=== PATIENT | male | born 1980 | race African-American/Black ===

== ENCOUNTER 2019-12-10 13:28 | Emergency (ER) | payer MEDICARE, MEDICAID ==
[2019-12-10 14:29] LABS: ABSOLUTE EOSINOPHILS # (AUTO) 0.1 10^3/uL (0.0-0.6); ABSOLUTE LYMPHOCYTES (AUTO) 1.5 10^3/uL (0.5-4.7); ABSOLUTE MONOCYTES (AUTO) 0.4 10^3/uL (0.1-1.4); BASOPHILS % (AUTO) 0.4 % (0-2); EOSINOPHILS % (AUTO) 2.3 % (0-6); HEMATOCRIT 43.7 % (37.9-51.0); HEMOGLOBIN 14.1 g/dL (13.5-17.0); LYMPHOCYTES % (AUTO) 29.4 % (13-45); MEAN CORPUSCULAR HEMOGLOBIN 28.2 pg (27.0-33.4); MEAN CORPUSCULAR HGB CONC 32.2 g/dL (32.0-36.0); MEAN CORPUSCULAR VOLUME 88 fl (80-97); MONOCYTES % (AUTO) 7.6 % (3-13); PLATELET COUNT 236 10^3/uL (150-450); RED BLOOD COUNT 4.98 10^6/uL (4.35-5.55); RED CELL DISTRIBUTION WIDTH 12.9 % (11.5-14.0); SEGMENTED NEUTROPHILS % (AUTO) 60.3 % (42-78); TOTAL CELLS COUNTED % (AUTO) 100 %
[2019-12-10 14:31] LABS: APPEARANCE,URINE CLEAR; BILIRUBIN,URINE NEGATIVE (NEGATIVE); COLOR,URINE YELLOW; GLUCOSE, URINE NEGATIVE (NEGATIVE); KETONES,URINE NEGATIVE (NEGATIVE); LEUKOCYTE ESTERASE,URINE NEGATIVE (NEGATIVE); NITRITE,URINE NEGATIVE (NEGATIVE); PROTEIN,URINE NEGATIVE (NEGATIVE); URINE SPECIFIC GRAVITY 1.008; UROBILINOGEN,URINE NEGATIVE mg/dL (<2.0)
[2019-12-10 14:48] LABS: URINE AMPHETAMINES SCREEN NEGATIVE; URINE BARBITURATES SCREEN NEGATIVE; URINE BENZODIAZEPINES SCREEN NEGATIVE; URINE COCAINE SCREEN NEGATIVE; URINE MARIJUANA (THC) SCREEN NEGATIVE; URINE METHADONE SCREEN NEGATIVE; URINE PHENCYCLIDINE SCREEN NEGATIVE
[2019-12-10 14:54] LABS: ALBUMIN 4.8 g/dL (3.5-5.0); ALKALINE PHOSPHATASE 102 U/L (38-126); ANION GAP 9 (5-19); ASPARTATE AMINO TRANSFERASE 27 U/L (17-59); BILIRUBIN,TOTAL 0.7 mg/dL (0.2-1.3); BLOOD UREA NITROGEN 5 mg/dL (7-20); CALCIUM 9.4 mg/dL (8.4-10.2); CARBON DIOXIDE 26 mmol/L (22-30); CHLORIDE 103 mmol/L (98-107); GLUCOSE 100 mg/dL (75-110); TOTAL PROTEIN 8.2 g/dL (6.3-8.2)
[2019-12-10 14:56] LABS: ACETAMINOPHEN < 10 ug/mL (10-30); ALCOHOL < 10 mg/dL (NONE DETECTED); SALICYLATE < 1.0 mg/dL (2.0-20.0)
--- NOTE | 2019-12-10 15:44 | RADIOLOGY REPORT (SQ) ---
EXAM DESCRIPTION: CHEST SINGLE VIEW IMAGES COMPLETED DATE/TIME: 12/10/2019 2:26 pm REASON FOR STUDY: altered mental status COMPARISON: None. EXAM PARAMETERS: NUMBER OF VIEWS: One view. TECHNIQUE: Single frontal radiographic view of the chest acquired. RADIATION DOSE: NA LIMITATIONS: None. FINDINGS: LUNGS AND PLEURA: No opacities, masses or pneumothorax. No pleural effusion. MEDIASTINUM AND HILAR STRUCTURES: No masses. Contour normal. HEART AND VASCULAR STRUCTURES: Heart normal in size. Normal vasculature. BONES: No acute findings. HARDWARE: None in the chest. OTHER: No other significant finding. IMPRESSION: NO ACUTE RADIOGRAPHIC FINDING IN THE CHEST. TECHNICAL DOCUMENTATION: JOB ID: [id number] 2010 [email or web address]- All Rights Reserved Reading location - IP/workstation name: [id number]
--- NOTE | 2019-12-10 18:28 | PSYCHOLOGICAL NOTE ---
Psych Note - Psych Note Date seen by psych provider: 12/10/19 Time seen by psych provider: 16:09 Psych Note: Reason for consult: IVC Patient arrived to [facility] via [facility] under IVC by [facility]. Patient was placed under involuntary commitment by Spike Whitfield for concerns of increased psychosis, hallucinations and disorganized thoughts. There was complaints from the patient's apartment complex that the patient was looking into people's cars and messing with electrical boxes. Patient is observed sitting straight up in chair facing away from the TV. Patient reports he does not know why he is currently at [facility] but remembers that the machine puller and laster brought him. Patient denies remembering going to [facility] or why he would go. When asked why patient was looking in electrical boxes he stated he was looking for land lines. He denies remembering trying to get into people's cars. Clinician spoke with patient's and. She reports that the patient has a history of mental health and does not take any medications. She reports that to her knowledge she has not been inpatient psychiatric treatment. She disclosed that the patient's mother was a drug addict so his grandmother raised him. In 2006 his grandmother and his brother and since then he struggled. 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 Now the patient struggles maintaining employment and "gets lost in his mind." She reports that at [facility] they asked why he was messing with the electrical boxes and he reported that he works for [employer] and was looking for landline's. She continue to report that when they asked about the cars he started "just talking out of his head saying he was pleased and the cars were all stolen and they did not have a license plates." Patient is alert and orientated to person and place. Mood is euthymic with flat affect. Patient denies suicidal and homicidal ideations. Patient demonstrates behaviors of responding to internal stimuli. Patient has difficulty maintaining eye contact with eyes darting around the room. He demonstrates difficulty with organized and linear conversation, does not finish thoughts and appears confused. Attention and concentration are fair. Insight, judgment, impulse control is poor. Clinical presentation Confused Probable hallucinations and/or delusions Disorganized thought processes Medication recommendations per [facility]'s contracted psychiatrist Dr. Keshav MENG are as follows Haldol 5 mg twice daily Cogentin 1 mg daily Impression\\plan: Patient is recommended continue under IVC. Patient has been placed on full IVC status prior to H arrival by MARC Rose. Patient presents c onfused with probable hallucinations and/or delusions. Patient has been extreme difficulty in engaging in organized linear conversation. Patient is staring at his lap with times of looking around the room as if searching for something. Patient has been engaging in behaviors that put himself and others and harm such as messing with electrical boxes and attempting to obtain entry into peoples veh icles. Medication recommendations have been provided. Dr. Emmanuel was consulted in the care management of this patient; tending physicians in agreement with recommendations and disposition.
--- NOTE | 2019-12-10 19:15 | EKG REPORT ---
SEVERITY:- NORMAL ECG - SINUS RHYTHM : Confirmed by: Tahira Begum MD 10-Dec-2019 19:14:21
[2019-12-10] MEDS ORDERED: BENZTROPINE MESYLATE 1 MG TABLET PO ONE (21:19)
--- NOTE | 2019-12-10 21:45 | ER Document Report ---
Entered by MUSA BROWN SCRIBE 12/10/19 1500 Acting as scribe for:ALEXANDRE WHITE MD ED General - General Chief Complaint: Psych Problem Stated Complaint: IVC W/PAPERS Information source: Patient Notes: This 39-year-old male with PTSD, minor TBI and autism and presents to the emergency department on IVC papers for looking into cars and messing with electric boxes. Patient says "I'm alright" when asked why he is at the emergency department. Patient reports that he is hearing voices and that he talks with them. Patient said that "somebody called about the landline" and he was "checking the landline outside". Patient states that he is not taking any medications and does not have any medical conditions. Patient denies headache, shortness of breath, fever, chills, suicide ideation, homicide ideation, rash, poor appetite, nausea, vomiting and diaphoresis. Past Medical History - General Information source: Patient - Social History Smoking Status: Never Smoker Cigarette use (# per day): No Chew tobacco use (# tins/day): No Frequency of alcohol use: None Drug Abuse: None Lives with: Alone Family History: Reviewed & Not Pertinent Psychiatric Medical History: Reports: Hx Post Traumatic Stress Disorder Surgical Hx: Negative - Immunizations Hx Diphtheria, Pertussis, Tetanus Vaccination: Yes Review of Systems - Review of Systems Constitutional: See HPI. denies: Chills, Diaphoresis, Fever EENT: No symptoms reported Cardiovascular: No symptoms reported Respiratory: See HPI. denies: Short of breath Gastrointestinal: See HPI. denies: Nausea, Vomiting, Poor appetite Genitourinary: No symptoms reported Male Genitourinary: No symptoms reported Musculoskeletal: No symptoms reported Skin: See HPI. denies: Rash Hematologic/Lymphatic: No symptoms reported Neurological/Psychological: See HPI, Hallucinations. denies: Homicidal ideation , Headaches, Suicidal ideation -: Yes All other systems reviewed and negative Physical Exam - Vital signs Vitals: Temp Pulse Resp BP Pulse Ox 98.7 F 74 18 147/100 H 99 12/10/19 13:42 12/10/19 13:42 12/10/19 13:42 12/10/19 13:42 12/10/19 13:42 - Notes Notes: Physical Exam: General: Alert, appears well. HEENT: Normocephalic. Atraumatic. PERRL. Extraocular movements intact. Oropharynx clear. Neck: Supple. Non-tender. Respiratory: No respiratory distress. Clear and equal breath sounds bilaterally. Cardiovascular: Regular rate and rhythm. Abdominal: Normal Inspection. Non-tender. No distension. Normal Bowel Sounds. Back: No gross abnormalities. Extremities: Moves all four extremities. Upper extremities: Normal inspection. Normal ROM. Lower extremities: Normal inspection. No edema. Normal ROM. Neurological: Normal cognition. AAOx4. Normal speech. Psychological: Flat affect. Skin: Warm. Dry. Normal color. Course - Re-evaluation Re-evalutation: 12/10/19 21:20 Patient has remained calm 12/10/19 21:22 Patient is on involuntary commitment due to acute psychotic behavior and and disorganized thought process. Patient is medically cleared at this time and stable to be transferred to another inpatient or outpatient mental health facility. - Vital Signs Vital signs: Temp Pulse Resp BP Pulse Ox 97.7 F 70 20 127/83 H 96 12/10/19 17:20 12/10/19 15:08 12/10/19 15:08 12/10/19 15:08 12/10/19 15:08 12/10/19 21:20 Vital signs are stable no acute process. - Laboratory Result Diagrams: 12/10/19 13:56 12/10/19 13:56 Laboratory results interpreted by me: 12/10/19 13:56 BUN 5 L Salicylates < 1.0 L Acetaminophen < 10 L - Diagnostic Test Radiology reviewed: Image reviewed, Reports reviewed Radiology results interpreted by me: 12/10/19 21:21 Chest x-ray shows no acute process. - EKG Interpretation by Me Additional EKG results interpreted by me: 12/10/19 21:22 Twelve-lead EKG shows normal sinus rhythm no acute process. Discharge - Discharge Clinical Impression: Acute psychosis Condition: Stable Disposition: PSYCH HOSP/UNIT I personally performed the services described in the documentation, reviewed and edited the documentation which was dictated to the scribe in my presence, and it accurately records my words and actions.
[2019-12-11] MEDS: HALOPERIDOL 5 MG TABLET PO SCH ×2 (09:19→17:19)
[2019-12-11] MEDS ORDERED: BENZTROPINE MESYLATE 1 MG TABLET PO SCH (10:00)
--- NOTE | 2019-12-11 13:29 | PSYCHOLOGICAL NOTE ---
Psych Note - Psych Note Date seen by psych provider: 12/11/19 Time seen by psych provider: 11:40 Psych Note: Reason for consult: IVC Patient arrived to [facility] via [facility] under IVC by [facility] Patient was placed under involuntary commitment by Spike Whitfield for concerns of increased psychosis, hallucinations and disorganized thoughts. There was complaints from the patient's apartment complex that the patient was looking into people's cars and messing with electrical boxes. Check in conducted with patient: Patient is noted to be laying down with the lights off but jumps up to a sitting position upon clinician entering room. Patient reports he is fine. He disclose s he still doesn't understand why he is at [facility]. He states he has eaten (patient has not eaten any food since arriving) and states he is currently no interested in taking a shower. He reports he has no questions at this time. [facility] Staff report the patient has not eaten or slept since his arrival. For most of the night the patient sat in the chair facing the opposite side of the room without the TV. Clinical presentation Confused Probable hallucinations and/or delusions Disorganized thought processes Medication recommendations per [facility]'s contracted psychiatrist Dr. Keshav MENG are as follows Haldol 5 mg twice daily Cogentin 1 mg daily Impression\plan: Patient is recommended continue under IVC. Patient has been placed on full IVC status prior to [facility] arrival by M[facility] Rose. Patient presents confused with probable hallucinations and/or delusions. Patient has been extreme difficulty in engaging in organized linear conversation. Patient continues to present confused and does not engage with [facility] Staff. He has not eaten, showered, or slept since his arrival. Medication recommendations have been provided. Dr. Emmanuel was consulted in the care management of this patient; tending physicians in agreement with recommendations and disposition.
[2019-12-11 18:31] VITALS: BP 140/79
== END 2019-12-11 19:36 ==
LOC: ER 13:28
DX: F23 Brief psychotic disorder (principal); F43.10 Post-traumatic stress disorder, unspecified; Z87.820 Personal history of traumatic brain injury; F84.0 Autistic disorder
CPT/HCPCS: 93005; 99285; 36415; 80307 ×4; 84443; 85025; 80053; 81001; 71045; 93010; A9270 ×3